=== PATIENT | female | born 1965 | race Caucasian/White ===

== ENCOUNTER 2016-12-22 20:37 | Inpatient (IN) | payer MEDICAID ==
[~2016-12-22] VITALS: Ht 165.1 cm; Wt 68.0 kg
--- NOTE | 2016-12-22 20:55 | NUR ---
PT A/OX4 BREATHING EFFORTLESSLY ON ROOM AIR, PT STATES SHE HAS BEEN HVAING ABD PAIN X 3 HOURS PT IS ROLLING IN BED IN PAIN, PT HELPED INTO GOWN, PT ON MONITOR, IV PLACED, PT FAMILY AT BEDSIDE, WILL CONTINUE TO MONITOR.
[2016-12-22] MEDS ORDERED: IV NS 0.9% 1,000 ML BAG IV ONE (21:00)
[2016-12-22] MEDS ORDERED: MORPHINE SULFATE INJ 2 MG/ML DISP.SYRIN IV ONE (21:00)
[2016-12-22] MEDS ORDERED: ONDANSETRON HCL/PF 4 MG/2 ML VIAL IVP ONE (21:00)
[2016-12-22] MEDS ORDERED: MORPHINE SULFATE INJ 4 MG/ML DISP.SYRIN ONE (21:06)
[2016-12-22] MEDS ORDERED: ONDANSETRON HCL/PF 4 MG/2 ML VIAL ONE (21:06)
[2016-12-22 21:11] LABS: BASOPHILS % (AUTO) 0.2 % (0.0-2.0); EOSINOPHILS # (AUTO) 1.7 /CMM (0.0-0.7); HEMATOCRIT 41 % (33-45); HEMOGLOBIN 13.7 g/dL (11.5-14.8); LYMPHOCYTES # (AUTO) 3.4 /CMM (0.8-4.8); LYMPHOCYTES % (AUTO) 21.3 % (20.0-44.0); MEAN CORPUSCULAR HEMOGLOBIN 30 PG (26.0-33.0); MEAN CORPUSCULAR HGB CONC 34 g/dl (31.0-36.0); MEAN CORPUSCULAR VOLUME 90 fL (82-100); MONOCYTES # (AUTO) 0.6 /CMM (0.1-1.30); MONOCYTES % (AUTO) 3.9 % (2.0-12.0); NEUTROPHILS % (AUTO) 63.6 % (43.0-81.0); PLATELET COUNT (AUTO) 251 /CMM (150-450); RDW COEFFICIENT OF VARIATION 12.5 (11.5-15.0); RED BLOOD CELL COUNT(AUTO) 4.54 MIL/uL (4.0-5.2); WHITE BLOOD COUNT (AUTO) 15.7 K/uL (4.3-11.0)
--- NOTE | 2016-12-22 21:15 | NUR ---
ULTRASOUND AT BEDSIDE
[2016-12-22 21:21] LABS: CALCIUM, SERUM 9.3 mg/dL (8.5-10.1); CREATININE 0.7 mg/dL (0.6-1.3); POTASSIUM 3.4 mmol/L (3.5-5.1)
[2016-12-22 21:27] LABS: ALBUMIN 3.9 g/dL (3.4-5.0); BILIRUBIN,DIRECT 0.1 mg/dL (0.0-0.2); BILIRUBIN,TOTAL 0.3 mg/dL (0.2-1.0); TOTAL PROTEIN, SERUM 8.4 g/dL (6.4-8.2)
--- NOTE | 2016-12-22 21:57 | NUR ---
LEFT SURGEON DR NORA BUENO A VOICEMAIL TO CALL BACK AND SPEAK WITH AC DURÁN.
[2016-12-22] MEDS ORDERED: PIPERACILLIN /TAZOBACTAM 3.375 G in IV D5W 50 ML IV ONE (22:00)
--- NOTE | 2016-12-22 22:00 | NUR ---
HUBER DURÁN ON THE PHONE WITH DR WRIGHT
[2016-12-22] MEDS ORDERED: MAGNESIUM HYDROXIDE 30 ML UDC PO PRN ×2 (22:30→23:15)
[2016-12-22] MEDS ORDERED: MORPHINE SULFATE INJ 2 MG/ML DISP.SYRIN IV PRN ×2 (22:30→23:15)
[2016-12-22] MEDS ORDERED: ZOLPIDEM TARTRATE 5 MG TABLET PO PRN ×2 (22:30→23:15)
[2016-12-22] MEDS ORDERED: IV NS 0.9% 1,000 ML IV SCH (22:30)
[2016-12-22] MEDS ORDERED: MAG HYDROX/AL HYDROX/SIMETH 30 ML UDC PO PRN ×2 (22:30→23:15)
[2016-12-22] MEDS ORDERED: HYDROCODONE/APAP 5/325MG 1 EACH TABLET PO PRN (22:30)
[2016-12-22] MEDS ORDERED: ONDANSETRON HCL/PF 4 MG/2 ML VIAL IVP PRN ×2 (22:30→23:15)
[2016-12-22] MEDS ORDERED: Z GUARD REMEDY 2 OZ OINT TP PRN ×2 (22:30→23:15)
[2016-12-22] MEDS ORDERED: ACETAMINOPHEN 325 MG TABLET PO PRN ×2 (22:30→23:15)
[2016-12-22] MEDS ORDERED: PIPERACILLIN /TAZOBACTAM 3.375 G VIAL IV ONE (22:39)
[2016-12-22 22:55] VITALS: BP 148/71
--- NOTE | 2016-12-22 23:00 | NUR ---
RN ADMITTING NOTES Pt ARRIVED TO FLOOR VIA GURNEY. Pt IS AMBULATORY. WAS ABLE TO WALK TO BED FROM THE [facility]. GAIT IS STEADY. SKIN ASSESSMENT DONE, SKIN IS INTACT. NO S/S OF ACUTE DISTRESS OR SOB NOTED. NO C/O PAIN AT THIS TIME. NO C/O N/V AT THIS TIME. IV ACCESS ON LAC #18G. SAFETY MEASURES IN PLACE. BED LOW, LOCKED, HOB ELEVATED, SIDE RAILS UP, CALL LIGHT AND BEDSIDE TABLE WITHIN REACH. WILL CONTINUE TO MONITOR Pt THROUGHOUT THE NIGHT FOR SAFETY.
[2016-12-23] VITALS: BP 102/71
[2016-12-23] MEDS: IV NS 0.9% 1,000 ML IV SCH ×3 (02:16→19:15)
--- NOTE | 2016-12-23 06:47 | NUR ---
RN CLOSING NOTES NO SIGNIFICANT CHANGES NOTED DURING THE SHIFT. NO S/S OF ACUTE DISTRESS OR SOB NOTED. ALL NEEDS MET AND ATTENDED TO. SAFETY MEASURES IN PLACE. WILL ENDORSE TO DAYSHIFT RN FOR Pt's FORREST.
--- NOTE | 2016-12-23 07:57 | NUR ---
MS RN OPENING NOTE PATIENT IS ALERT AND ORIENTED x4. NO PAIN AT THIS TIME. NO SOB OR DISTRESS NOTED. CALL LIGHT WITHIN REACH. SAFETY MEASURES IMPLEMENTED. ABLE TO COMMUNICATE NEEDS. AMBULATORY. NOTHING BY MOUTH EXCEPT MEDICATIONS. AWAITING SURGICAL CONSULT TODAY. LEFT LEFT INTACT AND PATENT, FLUIDS RUNNING AT 100 ML/HR TOLERATING WELL. NO AM LABS. WILL CONTINUE TO MONITOR THROUGHOUT SHIFT
[2016-12-23 08:00] VITALS: BP 137/71
[2016-12-23] MEDS: PANTOPRAZOLE 40 MG VIAL IV SCH (08:35)
[2016-12-23] MEDS ORDERED: PANTOPRAZOLE 40 MG VIAL IV SCH (09:00)
[2016-12-23] MEDS: PIPERACILLIN /TAZOBACTAM 3.375 G in IV D5W 50 ML IV SCH ×3 (09:47→20:10)
[2016-12-23 16:00] VITALS: BP 136/73
--- NOTE | 2016-12-23 18:30 | NUR ---
MS RN CLOSING NOTE PATIENT IS ALERT AND ORIENTED x4. NO PAIN AT THIS TIME. NO SOB OR DISTRESS NOTED. CALL LIGHT WITHIN REACH AT ALL TIMES. SAFETY MEASURES IMPLEMENTED. ABLE TO COMMUNICATE NEEDS. ALL DUE MEDICATIONS GIVEN ORDERED. IV ON LEFT AC INTACT AND PATENT NO REDNESS NOTED. IV FLUIDS RUNNING AT 100 ML/HR TOLERATING WELL. CLEAR LIQUIDS DIET. AWAITING SURGICAL CONSULTATION TO BE DONE. ON ROOM AIR TOLERATING WELL 02 SAT 98%. WILL ENDORSE TO RELAY TESTER HELPER NURSE FOR FORREST
[2016-12-23] MEDS ORDERED: diphenhydrAMINE HCL 25 MG CAPSULE PO ONE (19:00)
--- NOTE | 2016-12-23 19:50 | NUR ---
MS RN INITIAL NOTES REPORT RECEIVED FROM DAY SHIFT. PT IS IN BED NO SIGNS OF SOB OR DISTRESS. BREATHING EVENLY AND UNLABORED ON ROOMAIR. NO COMPLAINTS OF PAIN AT THIS TIME. PT IS ON A CLEAR LIQUID DIET. AMBULATORY. ABLE TO MAKE NEEDS KNOWN. WILL CONTINUE TO MONITOR PT
[2016-12-23 20:00] VITALS: BP 138/75
[2016-12-24] MEDS: PIPERACILLIN /TAZOBACTAM 3.375 G in IV D5W 50 ML IV SCH ×4 (01:37→21:00)
[2016-12-24] MEDS: IV NS 0.9% 1,000 ML IV SCH ×2 (04:39→17:06)
--- NOTE | 2016-12-24 06:51 | NUR ---
MS RN CLOSING NOTES PT IS IN BED RESTING. NO SIGNS OF SOB OR DISTRESS. IV ACCESS IS INTACT. ALL NEEDS WERE ANTICIPATED AND MET. WILL ENDORSE TO DAYSHIFT
[2016-12-24 07:18] LABS: BASOPHILS # (AUTO) 0.1 /CMM (0.0-0.2); BASOPHILS % (AUTO) 0.8 % (0.0-2.0); EOSINOPHILS # (AUTO) 1.8 /CMM (0.0-0.7); EOSINOPHILS % (AUTO) 24.8 % (0.0-6.0); HEMATOCRIT 37 % (33-45); HEMOGLOBIN 12.6 g/dL (11.5-14.8); LYMPHOCYTES # (AUTO) 2.4 /CMM (0.8-4.8); LYMPHOCYTES % (AUTO) 33.3 % (20.0-44.0); MEAN CORPUSCULAR HEMOGLOBIN 31 PG (26.0-33.0); MEAN CORPUSCULAR HGB CONC 35 g/dl (31.0-36.0); MEAN CORPUSCULAR VOLUME 89 fL (82-100); MONOCYTES # (AUTO) 0.3 /CMM (0.1-1.30); MONOCYTES % (AUTO) 4.8 % (2.0-12.0); NEUTROPHILS # (AUTO) 2.6 /CMM (1.8-8.9); NEUTROPHILS % (AUTO) 36.3 % (43.0-81.0); PLATELET COUNT (AUTO) 206 /CMM (150-450); RDW COEFFICIENT OF VARIATION 13.1 (11.5-15.0); RED BLOOD CELL COUNT(AUTO) 4.08 MIL/uL (4.0-5.2); WHITE BLOOD COUNT (AUTO) 7.1 K/uL (4.3-11.0)
[2016-12-24 07:37] LABS: CALCIUM, SERUM 8.5 mg/dL (8.5-10.1); CREATININE 0.8 mg/dL (0.6-1.3); MAGNESIUM 2.1 mg/dL (1.8-2.4); PHOSPHORUS 4.1 mg/dL (2.5-4.9); POTASSIUM 3.5 mmol/L (3.5-5.1)
[2016-12-24 08:00] VITALS: BP 136/81
--- NOTE | 2016-12-24 08:01 | NUR ---
MS RN OPENING NOTE PATIENT IS ALERT AND ORIENTED x4. NO PAIN AT THIS TIME. NO SOB OR DISTRESS NOTED. CALL LIGHT WITHIN REACH. SAFETY MEASURES IMPLEMENTED. ABLE TO COMMUNICATE NEEDS. IV ON RIGHT FOREARM INTACT AND PATENT NO REDNESS OR SWELLING NOTED. HAS AM LABS TODAY. IV FLUIDS RUNNING AT THIS TIME AT 100 ML/HR TOLERATING WELL. CLEAR LIQUID DIET. WILL CONTINUE TO MONITOR
[2016-12-24 08:13] LABS: EOSINOPHILS % (MANUAL) 21 % (0-4); LYMPHOCYTES % (MANUAL) 30 % (16-48); MONOCYTES % (MANUAL) 7 % (0-11.0); NEUTROPHILS % (MANUAL) 42 (42-76)
--- NOTE | 2016-12-24 08:30 | NUR ---
MS RN ROOM TRANSFER PATIENT CHANGED FROM 320-1 TO 315-2 CHARGE NURSE INFORMED
[2016-12-24] MEDS: PANTOPRAZOLE 40 MG VIAL IV SCH (08:58)
[2016-12-24 16:00] VITALS: BP 125/62
--- NOTE | 2016-12-24 18:33 | NUR ---
MS RN CLOSING NOTE PATIENT IS ALERT AND ORIENTED x4. NO PAIN AT THIS TIME. NO SOB OR DISTRESS NOTED. CALL LIGHT WITHIN REACH AT ALL TIMES. SAFETY MEASURES IMPLEMENTED. ABLE TO COMMUNICATE NEEDS. NPO AT MIDNIGHT FOR SURGERY TOMORROW. IV INTACT AND PATENT NO REDNESS OR SWELLING NOTED. AMBULATORY. IV FLUIDS AT 100 ML/HR. WILL ENDORSE TO DISABILITY BENEFITS SPECIALIST NURSE
[2016-12-24 19:44] VITALS: BP 130/76
--- NOTE | 2016-12-24 20:12 | NUR ---
Received patient in room alert awake laying in bed, denies any pain or discomfort at this time respiratory even unlabored ambulate to bathroom with steady gait, will continues to monitor the patient.
[2016-12-24 22:04] LABS: INR 0.99 (0.87-1.13); PROTHROMBIN TIME 10.3 SECS (9.5-12.7)
[2016-12-25] MEDS: PIPERACILLIN /TAZOBACTAM 3.375 G in IV D5W 50 ML IV SCH ×4 (01:19→20:28)
[2016-12-25] MEDS: IV NS 0.9% 1,000 ML IV SCH ×3 (01:22→21:29)
[2016-12-25 06:53] LABS: BASOPHILS % (AUTO) 0.7 % (0.0-2.0); EOSINOPHILS % (AUTO) 24.2 % (0.0-6.0); HEMATOCRIT 37 % (33-45); HEMOGLOBIN 12.8 g/dL (11.5-14.8); LYMPHOCYTES % (AUTO) 32.9 % (20.0-44.0); MEAN CORPUSCULAR HEMOGLOBIN 31 PG (26.0-33.0); MEAN CORPUSCULAR HGB CONC 34 g/dl (31.0-36.0); MEAN CORPUSCULAR VOLUME 89 fL (82-100); MONOCYTES % (AUTO) 6.6 % (2.0-12.0); NEUTROPHILS % (AUTO) 35.6 % (43.0-81.0); PLATELET COUNT (AUTO) 223 /CMM (150-450); RDW COEFFICIENT OF VARIATION 13.3 (11.5-15.0); WHITE BLOOD COUNT (AUTO) 7.9 K/uL (4.3-11.0)
[2016-12-25 06:54] LABS: BASOPHILS # (AUTO) 0.1 /CMM (0.0-0.2); EOSINOPHILS # (AUTO) 1.9 /CMM (0.0-0.7); LYMPHOCYTES # (AUTO) 2.6 /CMM (0.8-4.8); MONOCYTES # (AUTO) 0.5 /CMM (0.1-1.30); NEUTROPHILS # (AUTO) 2.8 /CMM (1.8-8.9)
--- NOTE | 2016-12-25 07:30 | NUR ---
RN OPENING NOTES RECEIVED PATIENT IN BED RESTING, A/O X4. NO ACUTE DISTRESS, NO SOB NOTED. DENIES PAIN AT THIS TIME. IV SITE INTACT AND PATENT. PATIENT AWAITING FOR PROCEDURE AT 1400 TODAY. KEPT PATIENT SAFE AND COMFORTABLE. BED IN LOCKED, LOW POSITION,SIDERAILS UPX2, CALL LIGHT WITHIN REACH. WILL CONTINUE TO MONITOR ACCORDINGLY.
[2016-12-25 08:00] VITALS: BP 140/79
[2016-12-25] MEDS: PANTOPRAZOLE 40 MG VIAL IV SCH (09:08)
[2016-12-25 10:35] LABS: CALCIUM, SERUM 8.7 mg/dL (8.5-10.1); CREATININE 0.8 mg/dL (0.6-1.3); MAGNESIUM 2.2 mg/dL (1.8-2.4); PHOSPHORUS 5.1 mg/dL (2.5-4.9); POTASSIUM 3.4 mmol/L (3.5-5.1)
[2016-12-25 11:28] LABS: PROTHROMBIN TIME 10.6 SECS (9.5-12.7)
[2016-12-25 11:31] LABS: INR 1.02 (0.87-1.13)
[2016-12-25 12:46] LABS: EOSINOPHILS % (MANUAL) 21 % (0-4); LYMPHOCYTES % (MANUAL) 33 % (16-48); MONOCYTES % (MANUAL) 6 % (0-11.0); MYELOCYTES % 1 % (0-0); NEUTROPHILS % (MANUAL) 39 (42-76)
--- NOTE | 2016-12-25 14:30 | NUR ---
RN NOTES PATIENT WENT TO OR PICKED UP BY OR NURSE AND TRANSPORTER, IN STABLE CONDITION. OR NURSE TOOK PATIENT'S ZOSYN, WILL ADMINISTER IN OR.
[2016-12-25] MEDS ORDERED: LIDOCAINE 0.5% HCL 50 ML VIAL ONE (14:54)
[2016-12-25] MEDS ORDERED: BUPIVACAINE MPF W/EPI 0.25% 30 ML VIAL ONE (14:54)
[2016-12-25] MEDS ORDERED: MIDAZOLAM HCL 2 MG/2ML VIAL ONE (14:55)
[2016-12-25] MEDS ORDERED: ROCURONIUM BROMIDE 50 MG/5 ML ONE (14:55)
[2016-12-25] MEDS ORDERED: FENTANYL PF 100MCG/2ML AMPUL ONE ×2 (14:55→16:04)
[2016-12-25] MEDS ORDERED: GLYCOPYRROLATE 0.2 MG/ML VIAL ONE (15:42)
[2016-12-25] MEDS: POTASSIUM CL. PREMIX PERIPHER. 50 ML IV SCH ×2 (16:51→18:32)
[2016-12-25 17:00] VITALS: BP 153/89
--- NOTE | 2016-12-25 17:00 | NUR ---
RN NOTES PATIENT CAME BACK FROM OR, PATIENT IS IN STABLE CONDITION. NEW ORDERS NOTED AND CARRIED OUT. WILL CONTINUE TO MONITOR ACCORDINGLY.
--- NOTE | 2016-12-25 19:32 | NUR ---
RN CLOSING NOTES PATIENT IN BED RESTING, ON BEDSIDE. NO ACUTE DISTRESS, NO SOB NOTED. DENIES PAIN OR DISCOMFORT. ALL NEEDS ATTENDED AND PROVIDED. KEPT PATIENT SAFE AND COMFORTABLE. BED IN LOW POSITION, LOCKED, SIDERAILS UP X2. CALL LIGHT WITHIN REACH. ENDORSED TO NIGHT RN FOR FORREST.
--- NOTE | 2016-12-25 19:45 | NUR ---
MS ART OPENING NOTES RECEIVED PATIENT RESTING IN BED, AWAKE. A & O X 2-3, ABLE TO VERBALIZE HIS NEEDS. NO C/O PAIN, NO SOB, NO CHANGE OF CONDITION NOTED. HAS NO IV ACCESS DUE TO PT'S REFUSAL FOR IV HYDRATION. MD AWARE. ENCOURAGED TO DRINK TOLERATED. ABLE TO TURN & REPOSITION IN BED INDEPENDENTLY. BED IN LOW LOCKED POSITION. CALL LIGHT WITHIN REACH. WILL CONTINUE TO MONITOR. Addendum: 12/26/16 at 0136 by GLEN GERARDO RN DISREGARD THE ABOVE DOCUMENTATION, WRONG ENTRY.
--- NOTE | 2016-12-25 19:55 | NUR ---
MS RN OPENING NOTES RECEIVED PATIENT RESTING IN BED, AT BEDSIDE. PT IS STATUS POST 3 PORT LAPAROSCOPIC CHOLECYSTECTOMY. DENIED ANY PAIN AT THIS TIME. SURGERY SITE CHECKED, 3 SMALL SIZE SURGERY SITES PINK/PURPLE COLOR NOTED. NO DISCOMFORT NOTED. IV ACCESS TO RFA, RUNNING WITH NS AT 100ML/HR, INTACT PATENT. CALL LIGHT WITHIN REACH. HEAD OF BED ELEVATED TO >30 DEGREE AT ALL TIMES ORDERED BY MD. BED IN LOW LOCKED POSITION. CONTINUING TO OBSERVE.
[2016-12-25 20:00] VITALS: BP 136/65
[2016-12-25 21:00] VITALS: BP 137/88
--- NOTE | 2016-12-25 21:07 | NUR ---
RN NOTES: CONTACTED RT KIRBY TO PLEASE BRING INCENTIVE SPIROMETER FOR THE PT, ORDERED BY MD DR MYLES MELENDEZ. WILL EDUCATE PT REGARDING USE OF IS WHILE AWAKE TO PREVENT POST OP LUNG COMPLICATION
--- NOTE | 2016-12-25 21:30 | NUR ---
I.S USE: EDUCATE PT REGARDING USE OF INCENTIVE SPIROMETER, ALSO TO USE WHILE AWAKE, RISK AND BENEFITS,
--- NOTE | 2016-12-25 21:52 | NUR ---
RN NOTES: ASSISTED PT TO THE BATHROOM, PT ABLE TO AMBULATE USING WALKER, RN STANDBY ASSIST, PT VOIDED FREELY, ASSISTED BACK TO BED, PT STATED SHE FELT A LOT BETTER AFTER WALKING,
[2016-12-25 22:00] VITALS: BP 133/71
[2016-12-26] MEDS: PIPERACILLIN /TAZOBACTAM 3.375 G in IV D5W 50 ML IV SCH ×3 (01:19→14:34)
--- NOTE | 2016-12-26 01:29 | NUR ---
ASSISTED PATIENT TO THE BATHROOM, URINATED FREELY. HAD MILD C/O PAIN TO SURGERY SITE BUT DIDN'T WANT TO TAKE ANY PAIN MEDICINE SINCE PAIN IS TOLERABLE. INFORMED THE PATIENT TO NOTIFY THE NURSE IF PAIN MEDS NEEDED & PT VERBALIZED UNDERSTANDING.
--- NOTE | 2016-12-26 06:29 | NUR ---
MS RN CLOSING NOTES PATIENT SLEPT INTERMITTENTLY. DENIED ANY PAIN WHILE RESTING IN BED. NO SOB, NO ACUTE DISTRESS OR DISCOMFORT NOTED. IV ACCESS TO RFA PATENT INTACT, RUNNING WITH NS 100ML/HR. NO S/S OF INFECTION NOTED AT IV SITE. BED AT > 30 DEGREE ORDERED. TURNS & REPOSITION IN BED. ABLE TO AMBULATE WITH THE WALKER TO THE BATHROOM. ALL NEEDS ATTENDED TO & MET. NO N/V NOTED. ABLE TO TOLERATE CLEAR LIQUIDS. SAFETY MEASURES USED. BED IN LOW LOCKED POSITION. CALL LIGHT WITHIN REACH. WILL ENDORSE TO AM RN.
[2016-12-26 06:38] LABS: BASOPHILS % (AUTO) 0.2 % (0.0-2.0); EOSINOPHILS % (AUTO) 0.1 % (0.0-6.0); HEMATOCRIT 38 % (33-45); HEMOGLOBIN 12.9 g/dL (11.5-14.8); LYMPHOCYTES # (AUTO) 1.6 /CMM (0.8-4.8); LYMPHOCYTES % (AUTO) 15.7 % (20.0-44.0); MEAN CORPUSCULAR HEMOGLOBIN 31 PG (26.0-33.0); MEAN CORPUSCULAR HGB CONC 34 g/dl (31.0-36.0); MEAN CORPUSCULAR VOLUME 90 fL (82-100); MONOCYTES # (AUTO) 0.5 /CMM (0.1-1.30); MONOCYTES % (AUTO) 5.4 % (2.0-12.0); NEUTROPHILS % (AUTO) 78.6 % (43.0-81.0); PLATELET COUNT (AUTO) 216 /CMM (150-450); RDW COEFFICIENT OF VARIATION 13.3 (11.5-15.0); WHITE BLOOD COUNT (AUTO) 10.1 K/uL (4.3-11.0)
[2016-12-26] MEDS: HYDROCODONE/APAP 5/325MG 1 EACH TABLET PO PRN ×3 (06:55→21:26)
[2016-12-26 07:02] LABS: ALBUMIN 3.2 g/dL (3.4-5.0); BILIRUBIN,TOTAL 0.6 mg/dL (0.2-1.0); CALCIUM, SERUM 8.8 mg/dL (8.5-10.1); CREATININE 0.7 mg/dL (0.6-1.3); POTASSIUM 3.5 mmol/L (3.5-5.1); TOTAL PROTEIN, SERUM 7.4 g/dL (6.4-8.2)
--- NOTE | 2016-12-26 07:20 | NUR ---
MS RN OPENING NOTES RECEIVED PATIENT IN BED RESTING, A/OX4. NO ACUTE DISTRESS, NO SOB NOTED. DENIED PAIN OR DISCOMFORT. IV SITE INTACT AND PATENT. KEPT PATIENT SAFE AND COMFORTABLE. BED IN LOW POSITION, LOCKED, SIDERAILS UP X2. CALL LIGHT WITHIN REACH. WILL CONTINUE TO MONITOR ACCORDINGLY.
[2016-12-26 08:00] VITALS: BP 140/77
[2016-12-26] MEDS: IV NS 0.9% 1,000 ML IV SCH (09:13)
[2016-12-26] MEDS: PANTOPRAZOLE 40 MG TABLET.DR PO SCH (09:14)
[2016-12-26 16:00] VITALS: BP 157/88
--- NOTE | 2016-12-26 19:20 | NUR ---
RN CLOSING NOTES NO CHANGE IN PATIENT'S CONDITION. NO ACUTE DISTRESS, NO SOB NOTED. ALL NEEDS ATTENDED AND PROVIDED. KEPT PATIENT SAFE AND COMFORTABLE. BED IN LOW POSITION, LOCKED, SIDERAILS UP X2. CALL LIGHT WITHIN REACH. ENDORSED TO NIGHT RN FOR FORREST.
--- NOTE | 2016-12-26 19:30 | NUR ---
RN NOTES; RECEIVED LYING COMFORTABLY IN BED, VERY PLEASANT PERSONALITY, ALERT AND COHERENT X4, ON ROOM AIR SPO2-99%,IV CANNULA RFA G#22 INTACT,NO IVF,NO SIGN OF SOB OR RESPIRATORY DISCOMFORT, FALL,SAFETY AND ASPIRATION PRECAUTION OBSERVE, NO PAIN AND DISCOMFORT AT THIS TIME, PLACE CALL LIGHT WITHIN EASY REACH, BED LOW AND LOCKED.
--- NOTE | 2016-12-26 19:45 | NUR ---
RN NOTES; SEEN BY BRITTANY(PA OF ) MIGHT BE D/C TOMORROW.NO NEW ORDER.
[2016-12-26 20:00] VITALS: BP 138/59
--- NOTE | 2016-12-26 21:22 | NUR ---
RN NOTES; REQUEST FOR PAIN PILL,5/10 PAIN ON THE ABDOMEN AREA,PRN MEDICATION GIVEN, BP-138/60,NON PHARMACOLOGIC INTERVENTION RENDERED,DIM LIGHT AND SLOW MUSIC PLAYED, KEPT IN COMFORTABLE POSITION, CALL LIGHT WITHIN EASY REACH.
--- NOTE | 2016-12-26 22:30 | NUR ---
RN NOTES; ABLE TO SLEEP AT SHORT INTERVALS,AMBULATORY GOING TO BATHROOM.PATIENT CLAIMED SHE FEELS BETTER,TRYING TO GO BACK TO SLEEP.CALL LIGHT WITHIN EASY REACH.
--- NOTE | 2016-12-27 06:27 | NUR ---
RN NOTES; SLEEP WELL IN THE NIGHT, NO PAIN AND DISCOMFORT AFTER PAIN PILL WAS GIVEN,ENDORSED FOR CONTINUITY OF CARE,FOR POSSIBLE DISCHARGE TODAY AND TO F/U ATB/PO WITH PMD IN THE MORNING.
--- NOTE | 2016-12-27 07:15 | NUR ---
MS RN OPENING NOTE RECEIVED SBAR REPORT AT THE BEDSIDE. PATIENT IS A/O X4, AWAKE AND COOPERATIVE. PATIENT IS IN BED, BED IS LOCKED IN LOWEST POSITION, SIDE RAILS UP X2. CALL LIGHT WITHIN REACH. EDUCATED THE PATIENT TO CALL FOR ASSISTANCE USING THE CALL LIGHT. PATIENT VERBALIZED FULL UNDERSTANDING OF THE TEACHINGS. DENIES PAIN/DISCOMFORT AT THIS TIME. PRESENTS WITH UNLABORED SPONTANEOUS RESPIRATIONS. CHEST RISING EQUALLY BILATERALLY. SPO2 97% RA. ALL NEEDS ARE ATTENDED TO. WILL CONTINUE TO ASSESS/MONITOR THROUGHOUT THE SHIFT.
[2016-12-27 08:00] VITALS: BP 136/78
[2016-12-27] MEDS: PANTOPRAZOLE 40 MG TABLET.DR PO SCH (09:27)
[2016-12-27] MEDS: HYDROCODONE/APAP 5/325MG 1 EACH TABLET PO PRN (09:31)
--- NOTE | 2016-12-27 16:15 | NUR ---
MS CHILD SUPPORT OFFICER NOTE PATIENT PROVIDED WITH DISCHARGE INSTRUCTIONS/EDUCATION AND VERBALIZED UNDERSTANDING OF THE TEACHINGS. STABLE ON ROOM AIR, VS WNL, AMBULATORY. SKIN INTACT EXCEPT FOR 3 SMALL ABDOMINAL INCISIONS S/P LAPAROSCOPIC CHOLECYSTECTOMY. SURGICAL SITE IS CLEAN AND DRY. PICTURE IS TAKEN AND PLACEN IN CHART. NO S/S OF INFECTION NOTED. DENIES PAIN/DISCOMFIT AT THIS TIME. IV CATHETER REMOVED WITH THE TIP INTACT. OCCLUSIVE DRESSING APPLIED. PATIENT TOLERATED THE PROCEDURE WELL . ALL BELONGINGS ARE ACCOUNTED FOR. PATIENT WILL BE LEAVING THE HOSPITAL VIA PRIVATE CAR ACCOMPANIED BY THE . PATIENT IS CURRENTLY READY TO LEAVE THE UNIT. WAITING FOR THE TO ARRIVE TO [facility] THE PATIENT.
== END 2016-12-27 17:00 | disposition home health service (06) | DRG 263 ==
LOC: ER 20:40 → MED 23:59
PROVIDERS: ADMIT Internal Medicine; ATTEND Internal Medicine
DX: K80.00 Calculus of gallbladder with acute cholecystitis without obstruction (principal); K76.0 Fatty (change of) liver, not elsewhere classified; E87.6 Hypokalemia; R73.9 Hyperglycemia, unspecified; D72.829 Elevated white blood cell count, unspecified
CPT/HCPCS: 36415; 71010-TC; 76705-TC; 80048-TC; 80053-TC; 80076-TC; 83690-TC; 83735-TC; 84100-TC; 85025-TC; 85610-TC; 85730-TC; 87081-TC; 88304-TC; 88305-TC; 88307-TC; A4606; C9113; J1100; J2250; J2270; J2405; J2543; J2704; J3010; J3480; J3490; J7030; J7060; Q0163; Z7610